=== PATIENT | female | born 1965 | race African-American/Black ===

== ENCOUNTER 2016-08-08 12:51 | Observation (INO) | payer OTHER, MEDICAID ==
[~2016-08-08] VITALS: Ht 177.8 cm; Wt 82.0 kg
[2016-08-08] VITALS (7 sets, daily range): BP systolic 106–120; BP diastolic 68–85; PULSE 60–69; RESP 15–18; TEMP 97–98.5; O2SAT 96–100
[2016-08-08] MEDS ORDERED: SODIUM CHLORID 0.9% 500 ML INJ 500 ML IV ONE (13:15)
[2016-08-08] MEDS ORDERED: SODIUM CHLORIDE 0.9% FLUSH 5 ML FLUSH IVF PRN (13:15)
[2016-08-08] MEDS ORDERED: ASPIRIN 81 MG CHEW TAB PO ONE (13:15)
[2016-08-08] MEDS ORDERED: ASPI81CH CHEW (13:22)
[2016-08-08] MEDS ORDERED: CLON0.5T PO (13:22)
[2016-08-08] MEDS ORDERED: NIFE60TA58 PO (13:22)
[2016-08-08] MEDS ORDERED: ATEN50TA PO (13:22)
[2016-08-08] MEDS ORDERED: ESCI10TA PO (13:22)
[2016-08-08] MEDS ORDERED: HYDR1CAP30 PO (13:22)
[2016-08-08] MEDS ORDERED: ATOR20TA15 PO (13:22)
--- NOTE | 2016-08-08 13:23 | PD ---
HPI Chief Complaint: Chest Pain Time Seen by Provider: 13:05 Travel History International Travel<30 days: No Contact w/Intl Traveler<30days: No Traveled to known affect area: No History of Present Illness HPI The patient is a 51-year-old [place] female who presents to the emergency department for chest pain. The patient is currently visiting family, she is from [place]. The patient states she had chest pain at 10 AM this morning that awakened her from sleep. The chest pain is substernal, dull, achy , nonradiating. The patient does complain of mild shortness of breath and nausea with the chest pain but denies any vomiting. The patient does have a history of hypertension, hyperlipidemia, and previous TIA. The patient took a baby aspirin this morning. The patient denies any recent exertional symptoms and is unsure if she has had a stress test in the past, she denies previous cardiac catheterization. The patient's symptoms are moderate, there are no current alleviating or exacerbating factors. PFSH Past Medical History Narrative Medical Hypertension, hyperlipidemia, TIA Social History Tobacco Use: No Allergies-Medications (Allergen,Severity, Reaction): Coded Allergies: No Known Allergies (Unverified , 08/08/16) Reported Meds & Prescriptions Reported Meds & Active Scripts Active Reported Escitalopram (Escitalopram Oxalate) 10 Mg Tab 10 Mg PO DAILY Clonazepam 0.5 Mg Tab 0.5 Mg PO BID PRN Hydroxyzine Pamoate 25 Mg Cap 50 Mg PO HS PRN Aspirin 81 Mg Chew 81 Mg CHEW DAILY Atenolol 50 Mg Tab 50 Mg PO DAILY Atorvastatin (Atorvastatin Calcium) 20 Mg Tab 20 Mg PO HS Nifedipine ER 24 HR (Nifedipine) 60 Mg Tab 60 Mg PO DAILY Review of Systems Except as stated in HPI: all other systems reviewed are Neg General / Constitutional: No: Fever HENT: No: Lightheadedness Cardiovascular: Positive: Chest Pain or Discomfort, No: Diaphoresis Respiratory: Positive: Shortness of Breath Gastrointestinal: Positive: Nausea, No: Vomiting Musculoskeletal: No: Myalgias, Weakness Neurologic: No: Weakness, Dizziness Physical Exam Narrative GENERAL: Awake, alert, pleasant 51-year-old female who appears her stated age and is in no acute respiratory distress. SKIN: Warm and dry. HEAD: Atraumatic. Normocephalic. EYES: No injection or drainage. ENT: No nasal bleeding or discharge. Mucous membranes pink and moist. NECK: Trachea midline. No JVD. CARDIOVASCULAR: Regular rate and rhythm. No murmur appreciated. RESPIRATORY: No accessory muscle use. Clear to auscultation. Breath sounds equal bilaterally. GASTROINTESTINAL: Abdomen soft, non-tender, nondistended. No epigastric tenderness. No rebound tenderness, guarding, or rigidity. MUSCULOSKELETAL: No obvious deformities. No clubbing. No cyanosis. No edema. NEUROLOGICAL: Awake and alert. No obvious cranial nerve deficits. Motor grossly within normal limits. Normal speech. PSYCHIATRIC: Appropriate mood and affect; insight and judgment normal. Data Data Last Documented VS Vital Signs Date Time Temp Pulse Resp B/P Pulse Ox O2 Delivery O2 Flow Rate FiO2 08/08/16 13:46 99 Room Air 08/08/16 13:45 114/76 08/08/16 13:14 98.5 69 16 Orders Ckmb (Isoenzyme) Profile (08/08/16 13:13) Complete Blood Count With Diff (08/08/16 13:13) Comprehensive Metabolic Panel (08/08/16 13:13) Magnesium (Mg) (08/08/16 13:13) Prothrombin Time / Inr (Pt) (08/08/16 13:13) Act Partial Throm Time (Ptt) (08/08/16 13:13) Troponin I (08/08/16 13:13) Chest, Single Ap (08/08/16 13:13) Ecg Monitoring (08/08/16 13:13) Bilateral Bp Monitoring (08/08/16 13:13) Iv Access Insert/Monitor (08/08/16 13:13) Oximetry (08/08/16 13:13) Oxygen Administration (08/08/16 13:13) Aspirin Chew (Aspirin Chew) (08/08/16 13:15) Sodium Chloride 0.9% Flush (Ns Flush) (08/08/16 13:15) Sodium Chlorid 0.9% 500 Ml Inj (Ns 500 M (08/08/16 13:15) CKMB (08/08/16 13:31) CKMB% (08/08/16 13:31) Morphine Inj (Morphine Inj) (08/08/16 14:15) Ondansetron Inj (Zofran Inj) (08/08/16 14:15) Nitroglycerin 2% Oint (Nitroglycerin 2% (08/08/16 14:15) Lipase (08/08/16 13:31) Admit Order (Ed Use Only) (08/08/16 14:34) Labs Laboratory Tests Test 08/08/16 13:31 White Blood Count 4.0 TH/MM3 Red Blood Count 4.92 MIL/MM3 Hemoglobin 11.3 GM/DL Hematocrit 35.5 % Mean Corpuscular Volume 72.0 FL Mean Corpuscular Hemoglobin 22.9 PG Mean Corpuscular Hemoglobin 31.8 % Concent Red Cell Distribution Width 15.3 % Platelet Count 201 TH/MM3 Mean Platelet Volume 8.2 FL Neutrophils (%) (Auto) 47.2 % Lymphocytes (%) (Auto) 39.1 % Monocytes (%) (Auto) 10.5 % Eosinophils (%) (Auto) 2.7 % Basophils (%) (Auto) 0.5 % Neutrophils # (Auto) 1.9 TH/MM3 Lymphocytes # (Auto) 1.6 TH/MM3 Monocytes # (Auto) 0.4 TH/MM3 Eosinophils # (Auto) 0.1 TH/MM3 Basophils # (Auto) 0.0 TH/MM3 CBC Comment AUTO DIFF Differential Comment AUTO DIFF CONFIRMED Ovalocytes 1+ Prothrombin Time 11.6 SEC Prothromb Time International 1.0 RATIO Ratio Activated Partial 28.0 SEC Thromboplast Time Sodium Level 143 MEQ/L Potassium Level 3.9 MEQ/L Chloride Level 108 MEQ/L Carbon Dioxide Level 27.3 MEQ/L Anion Gap 8 MEQ/L Blood Urea Nitrogen 12 MG/DL Creatinine 0.79 MG/DL Estimat Glomerular Filtration 92 ML/MIN Rate Random Glucose 96 MG/DL Calcium Level 8.6 MG/DL Magnesium Level 1.7 MG/DL Total Bilirubin 0.4 MG/DL Aspartate Amino Transf 15 U/L (AST/SGOT) Alanine Aminotransferase 23 U/L (ALT/SGPT) Alkaline Phosphatase 78 U/L Total Creatine Kinase 121 U/L Creatine Kinase MB 0.5 NG/ML Troponin I LESS THAN 0.02 NG/ML Total Protein 8.0 GM/DL Albumin 3.6 GM/DL Lipase 225 U/L MDM Medical Decision Making Medical Screen Exam Complete: Yes Emergency Medical Condition: Yes Medical Record Reviewed: Yes Interpretation(s) EKG reveals normal sinus rhythm with PACs. No ischemic changes noted. Chest x-rays unremarkable Laboratory Tests Test 08/08/16 13:31 White Blood Count 4.0 TH/MM3 Red Blood Count 4.92 MIL/MM3 Hemoglobin 11.3 GM/DL Hematocrit 35.5 % Mean Corpuscular Volume 72.0 FL Mean Corpuscular Hemoglobin 22.9 PG Mean Corpuscular Hemoglobin 31.8 % Concent Red Cell Distribution Width 15.3 % Platelet Count 201 TH/MM3 Mean Platelet Volume 8.2 FL Neutrophils (%) (Auto) 47.2 % Lymphocytes (%) (Auto) 39.1 % Monocytes (%) (Auto) 10.5 % Eosinophils (%) (Auto) 2.7 % Basophils (%) (Auto) 0.5 % Neutrophils # (Auto) 1.9 TH/MM3 Lymphocytes # (Auto) 1.6 TH/MM3 Monocytes # (Auto) 0.4 TH/MM3 Eosinophils # (Auto) 0.1 TH/MM3 Basophils # (Auto) 0.0 TH/MM3 CBC Comment AUTO DIFF Prothrombin Time 11.6 SEC Prothromb Time International 1.0 RATIO Ratio Activated Partial 28.0 SEC Thromboplast Time Sodium Level 143 MEQ/L Potassium Level 3.9 MEQ/L Chloride Level 108 MEQ/L Carbon Dioxide Level 27.3 MEQ/L Anion Gap 8 MEQ/L Blood Urea Nitrogen 12 MG/DL Creatinine 0.79 MG/DL Estimat Glomerular Filtration 92 ML/MIN Rate Random Glucose 96 MG/DL Calcium Level 8.6 MG/DL Magnesium Level 1.7 MG/DL Total Bilirubin 0.4 MG/DL Aspartate Amino Transf 15 U/L (AST/SGOT) Alanine Aminotransferase 23 U/L (ALT/SGPT) Alkaline Phosphatase 78 U/L Total Creatine Kinase 121 U/L Troponin I LESS THAN 0.02 NG/ML Total Protein 8.0 GM/DL Albumin 3.6 GM/DL Differential Diagnosis Differential diagnosis includes acute coronary syndrome, costochondritis, GERD, soft with spasm, gastritis, pancreatitis, dissection. Narrative Course IV was established, labs were drawn and sent, and the patient was placed on cardiac telemetry monitoring and continuous pulse oximetry monitoring. EKG was ordered and interpreted. The patient was administered aspirin and IV fluids. Chest x-ray was obtained. Troponin/CPK were sent to lab. Chest x-rays unremarkable. The patient's initial troponin and CPK are negative. The patient continued to have pain, therefore, was administered nitroglycerin ointment 1 half-inch, morphine, and Zofran. Patient does have risk factors including hypertension, hyperlipidemia, known previous TIA, according to her report. Therefore, after discussion with patient, as agreed she would be a 23 hour observation to the chest pain center for serial cardiac enzymes and possible stress test. The patient is comfortable with this plan of care and disposition. Physician Communication [facility] Communication [facility] to the chest pain Center. I discussed the patient with Dr. Fajardo who agrees with 23 hour observation. Diagnosis Primary Impression: Chest pain Qualified Code: R07.9 - Chest pain, unspecified type Admitting Information Admitting Physician Requests: Observation Condition: Stable Brent Bautista MD Aug 08, 2016 13:23
[2016-08-08 13:46] LABS: AUTOMATED NEUTROPHIL # 1.9 TH/MM3 (1.8-7.7); BASOPHIL % 0.5 % (0.0-2.0); EOSINOPHIL # 0.1 TH/MM3 (0-0.4); EOSINOPHIL % 2.7 % (0.0-4.0); HEMATOCRIT 35.5 % (35.0-46.0); HEMO FLAGS AUTO DIFF; LYMPH % 39.1 % (9.0-44.0); LYMPHOCYTE # 1.6 TH/MM3 (1.0-4.8); MEAN CORPUSCULAR HEMOGLOBIN 22.9 PG (27.0-34.0); MEAN CORPUSCULAR HGB CONC 31.8 % (32.0-36.0); MONO % 10.5 % (0.0-8.0); NEUT % 47.2 % (16.0-70.0); PLATELET COUNT 201 TH/MM3 (150-450); RED BLOOD COUNT 4.92 MIL/MM3 (4.00-5.30); RED CELL DISTRIBUTION WIDTH 15.3 % (11.6-17.2)
[2016-08-08 13:50] LABS: CHLORIDE 108 MEQ/L (98-107); POTASSIUM 3.9 MEQ/L (3.5-5.1); SODIUM (NA) 143 MEQ/L (136-145)
[2016-08-08 13:53] LABS: PROTHROMBIN TIME - PATIENT 11.6 SEC (9.8-11.6)
[2016-08-08 13:55] LABS: ANION GAP 8 MEQ/L (5-15); BICARBONATE 27.3 MEQ/L (21.0-32.0); BLOOD UREA NITROGEN 12 MG/DL (7-18); MAGNESIUM 1.7 MG/DL (1.5-2.5)
[2016-08-08 13:57] LABS: ALT (GPT) 23 U/L (10-53)
[2016-08-08 13:58] LABS: AST (GOT) 15 U/L (15-37); GLOMERULAR FILTRATION RATE 92 ML/MIN (>89)
[2016-08-08 13:59] LABS: TOTAL BILIRUBIN ADULT 0.4 MG/DL (0.2-1.0)
[2016-08-08 14:00] LABS: CREATINE KINASE 121 U/L (26-192)
[2016-08-08 14:01] LABS: ALKALINE PHOSPHATASE 78 U/L (45-117)
[2016-08-08 14:13] LABS: CKMB 0.5 NG/ML (0.5-3.6)
[2016-08-08] MEDS ORDERED: ONDANSETRON HCL 4 MG/2 ML VIAL IV PUSH ONE (14:15)
[2016-08-08] MEDS ORDERED: NITROGLYCERIN 2% OINT 1 GM PACKET TOPICAL ONE (14:15)
[2016-08-08] MEDS ORDERED: MORPHINE SULFATE 4 MG/ML INJ IV PUSH ONE (14:15)
[2016-08-08 14:19] LABS: OVALOCYTES 1+ (NORMAL); SCAN/DIFF AUTO DIFF CONFIRMED
--- NOTE | 2016-08-08 14:21 | RADHPO ---
EXAM DATE/TIME: 08/08/2016 13:36 [facility] COMPARISON: No previous studies available for comparison. INDICATIONS : Chest pain MEDICAL HISTORY : None. SURGICAL HISTORY : None. ENCOUNTER: Initial ACUITY: 1 day PAIN SCORE: 2/10 LOCATION: middle chest FINDINGS: A single view of the chest demonstrates the lungs to be symmetrically aerated without evidence of mas s, infiltrate or effusion. The cardiomediastinal contours are unremarkable. Osseous structures are intact. CONCLUSION: No acute disease. Elan Flynn MD FACR on August 08, 2016 at 14:20 Board Certified Radiologist. This report was verified electronically.
--- NOTE | 2016-08-08 15:31 | HHI.HP ---
[facility] Primary Care Physician Non-Staff Admission Diagnosis chest pain rule out acute coronary syndrome Diagnoses: (1) Chest pain Diagnosis: Principal Chief Complaint: chest pain Travel History International Travel<30 Days: No Contact w/Intl Traveler <30 Da: No Traveled to Known Affected Are: No History of Present Illness 51-year-old -[place] female with history of hypertension, hyperlipidemia , multiple TIAs presents with complaint of chest pain and is admitted to chest pain center. Patient states chest pain woke her from sleep this morning. She locates the pain just left of the sternum. States the pain at its worse was a 9 /10. She had taken her blood pressure medication and aspirin at home but is unsure if it provided relief. She did receive medication here in the ED and pain is better now but still 6/10 currently. She admits to radiation of pain to left shoulder and left jaw. She also states she was diaphoretic and short of breath. She does admit to having dyspnea on exertion and sleeps with 3 pillows at night and admits to PND, but she also uses a CPAP. Patient admits to recent ankle swelling and states she took a car trip from [place] to [place] last weekend but does admit to frequent stops. She denies any history of DVT or pulmonary embolus, exogenous estrogen use, or recent surgeries. Admits to runny nose and chills but denies any cold symptoms otherwise including cough. Admits to navel pain. Review of Systems Except as stated in HPI: all other systems reviewed are Neg Past Family Social History Past Medical History Hypertension Hyperlipidemia TIA 2 2007 TIA November 2015 Past Surgical History Right hip replacement Arthroscopy left shoulder Reported Medications Escitalopram (Escitalopram Oxalate) 10 Mg Tab 10 Mg PO DAILY Clonazepam 0.5 Mg Tab 0.5 Mg PO BID PRN Hydroxyzine Pamoate 25 Mg Cap 50 Mg PO HS PRN Aspirin 81 Mg Chew 81 Mg CHEW DAILY Atenolol 50 Mg Tab 50 Mg PO DAILY Atorvastatin (Atorvastatin Calcium) 20 Mg Tab 20 Mg PO HS Nifedipine ER 24 HR (Nifedipine) 60 Mg Tab 60 Mg PO DAILY Allergies: Coded Allergies: No Known Allergies (Unverified , 08/08/16) Family History Mother: Hypertension Father: [place] at age 67 Half-brother: [place] in his 30s. Maternal grandmother: Stroke, hypertension, diabetes Social History Denies history of cigarette smoking. Drinks wine occasionally. Denies any history of illicit drug use. Physical Exam Vital Signs Vital Signs Date Time Temp Pulse Resp B/P Pulse Ox O2 Delivery O2 Flow Rate FiO2 08/08/16 13:46 99 Room Air 08/08/16 13:46 99 Room Air 08/08/16 13:45 114/76 08/08/16 13:14 98.5 69 16 106/72 100 Physical Exam GENERAL: This is a pleasant well-nourished, well-developed patient, in no apparent distress. SKIN: No rashes, ecchymoses or lesions. Warm and dry. HEAD: Atraumatic. Normocephalic. EYES: No scleral icterus. No injection or drainage. NECK: Trachea midline. No JVD. CARDIOVASCULAR: Regular rate and rhythm without murmurs, gallops, or rubs. RESPIRATORY: Clear to auscultation. Breath sounds equal bilaterally. No wheezes , rales, or rhonchi. GASTROINTESTINAL: Abdomen soft, non-tender, nondistended. No abdominal bruits. No pulsatile masses. MUSCULOSKELETAL: No lower extremity edema or calf pain bilaterally. NEUROLOGICAL: Awake and alert. Motor grossly within normal limits. Normal speech. PSYCHIATRIC: Normal mood and affect. Laboratory Laboratory Tests Test 08/08/16 13:31 White Blood Count 4.0 Red Blood Count 4.92 Hemoglobin 11.3 Hematocrit 35.5 Mean Corpuscular Volume 72.0 Mean Corpuscular Hemoglobin 22.9 Mean Corpuscular Hemoglobin 31.8 Concent Red Cell Distribution Width 15.3 Platelet Count 201 Mean Platelet Volume 8.2 Neutrophils (%) (Auto) 47.2 Lymphocytes (%) (Auto) 39.1 Monocytes (%) (Auto) 10.5 Eosinophils (%) (Auto) 2.7 Basophils (%) (Auto) 0.5 Neutrophils # (Auto) 1.9 Lymphocytes # (Auto) 1.6 Monocytes # (Auto) 0.4 Eosinophils # (Auto) 0.1 Basophils # (Auto) 0.0 CBC Comment AUTO DIFF Differential Comment AUTO DIFF CONFIRMED Ovalocytes 1+ Prothrombin Time 11.6 Prothromb Time International 1.0 Ratio Activated Partial 28.0 Thromboplast Time Sodium Level 143 Potassium Level 3.9 Chloride Level 108 Carbon Dioxide Level 27.3 Anion Gap 8 Blood Urea Nitrogen 12 Creatinine 0.79 Estimat Glomerular Filtration 92 Rate Random Glucose 96 Calcium Level 8.6 Magnesium Level 1.7 Total Bilirubin 0.4 Aspartate Amino Transf 15 (AST/SGOT) Alanine Aminotransferase 23 (ALT/SGPT) Alkaline Phosphatase 78 Total Creatine Kinase 121 Creatine Kinase MB 0.5 Troponin I LESS THAN 0.02 Total Protein 8.0 Albumin 3.6 Lipase 225 Result Diagram: 08/08/16 1331 08/08/16 1331 Assessment and Plan Problem List: (1) Chest pain ICD Code: R07.9 Status: Acute Assessment and Plan 51-year-old [place] female with: Chest pain: Associated with diaphoresis, shortness of breath, radiating pain to the jaw and left shoulder. Still has pain now. Nitro ointment applied in ED. Patient received 162 mg aspirin, Zofran, and morphine as well. EKG personally interpreted with normal sinus rhythm with PACs and LAD. Troponin less than 0.02. Chest x-ray personally interpreted without evidence of pneumonia. -Serial EKGs and enzymes -Patient additionally admits to orthopnea, PND, and dyspnea on exertion. Will order BNP. No evidence of cardiomegaly or fluid overload on chest x-ray. Lung exam benign and legs without swelling so unlikely to have CHF. -325 mg daily aspirin -Nitro/[place]/morphine prn pain -Telemetry -Stress test in the am HTN: Patient tells me she last took her atenolol and nifedipine this morning. Will hold these in case patient can perform a treadmill test tomorrow. -Clonidine and Enalapril prn SBP >160/ DBP >90 HLD: Continue home medication DVT prevention: TEDs/SCDs. Written by Madyson Chase PA-C acting as scribe for Dr. Fajardo on 08/08/16 at ~ 1525. I, Dr. Naresh Fajardo personally performed the history, physical exam, and medical decision making; and confirmed the accuracy of the information in the transcribed note. Authenticated by Dr. Naresh Fajardo on 08/08/16 at 15:25. Code Status Full code Discussed Condition With ED physician Problem Qualifiers (1) Chest pain: Qualified Code: R07.9 - Chest pain, unspecified type Madyson Chase Aug 08, 2016 15:31 Naresh Fajardo MD Aug 08, 2016 16:27
[2016-08-08] MEDS ORDERED: ACETAMINOPHEN 500 MG CPLT PO PRN (15:45)
[2016-08-08] MEDS ORDERED: ONDANSETRON HCL 4 MG/2 ML VIAL IV PRN (15:45)
[2016-08-08] MEDS ORDERED: MORPHINE SULFATE 4 MG/ML INJ IV PRN (15:45)
[2016-08-08] MEDS ORDERED: cloNIDine HCL 0.1 MG TAB PO PRN (16:15)
[2016-08-08] MEDS ORDERED: ENALAPRILAT 1.25 MG/ML VIAL IV PUSH PRN (16:15)
[2016-08-08 17:27] LABS: CREATINE KINASE 121 U/L (26-192)
[2016-08-08 17:39] LABS: CKMB 0.7 NG/ML (0.5-3.6)
[2016-08-08] MEDS: ACETAMINOPHEN/HYDROcodone 325 MG/7.5 MG TAB PO PRN ×2 (18:09→22:59)
[2016-08-08 20:14] LABS: CREATINE KINASE 118 U/L (26-192)
[2016-08-08 20:26] LABS: CKMB LESS THAN 0.5 NG/ML (0.5-3.6)
[2016-08-08] MEDS: ESCITALOPRAM OXALATE 10 MG TAB PO SCH (21:00)
[2016-08-08] MEDS: SODIUM CHLORIDE 0.9% FLUSH 5 ML FLUSH IVF SCH (21:00)
[2016-08-08] MEDS: NITROGLYCERIN 0.4 MG SL 25 TABS/BTL SL PRN ×3 (23:05→23:30)
[2016-08-09] VITALS: BP 115/72; PULSE 59; RESP 16; TEMP 96.7; O2SAT 97
[2016-08-09 04:00] VITALS: BP 117/75; PULSE 70; RESP 18; TEMP 96.4; O2SAT 99
[2016-08-09] MEDS: SODIUM CHLORIDE 0.9% FLUSH 5 ML FLUSH IVF PRN ×2 (04:36→04:40)
--- NOTE | 2016-08-09 07:49 | HHI.PR ---
Subjective Remarks Patient seen and examined today for follow-up on chest pain. Patient states that she has had constant chest pain throughout the night the precordial area. Patient states it felt like she get hit by hammer in the chest. Objective Vitals Vital Signs Date Time Temp Pulse Resp B/P Pulse Ox O2 Delivery O2 Flow Rate FiO2 08/09/16 04:00 96.4 70 18 117/75 99 08/09/16 00:00 96.7 59 16 115/72 97 08/08/16 20:00 97.9 61 18 120/76 98 08/08/16 20:00 62 08/08/16 16:00 97.0 60 16 119/85 96 08/08/16 15:46 68 15 111/68 99 08/08/16 15:30 64 08/08/16 13:46 99 Room Air 08/08/16 13:46 99 Room Air 08/08/16 13:45 114/76 08/08/16 13:14 98.5 69 16 106/72 100 I/O 08/08/16 08/08/16 08/08/16 08/09/16 08/09/16 08/09/16 07:00 15:00 23:00 07:00 15:00 23:00 Intake Total 920 ml 0 ml Balance 920 ml 0 ml Intake Oral 420 ml 0 ml IV Total 500 ml # Voids 1 2 # Bowel Movements 0 Result Diagram: 08/08/16 1331 08/08/16 1331 Objective Remarks GENERAL: Well-developed, well-nourished, in no acute distress. alert and orientated HEENT: Head is normocephalic without any lesions or masses noted. Facial features are symmetric. Eyes: Extraocular muscles are intact. Conjunctivae were clear. NECK: Supple without any masses. Trachea midline no deviation. No JVD, CARDIAC: Regular rhythm, regular rate. S1/S2 are heard. 2/6 ejection murmur left sternal border. No Gallops or rubs. Reproducible palpable tenderness along left sternal border LUNGS: Clear to auscultation bilaterally. No wheeze, rhonchi or rales. No use of accessory muscles on inspiration or expiration. ABDOMEN: Soft, nontender. Nondistended. Bowel sounds heard in all 4 quadrants. No organomegaly or masses. Negative rebound, negative guarding EXTREMITIES: No edema, pulses are equal bilaterally. No cyanosis or clubbing NEUROLOGY: Mood and affect appear appropriate. Cranial nerves II through XII grossly intact. Moving all extremities, speech clear Urinary Catheter: No Vascular Central Line Catheter: No A/P Assessment and Plan -Chest pain: Patient still with active left sternal border chest pain, the [place] and hit her in the chest with a hammer. Continue, Zofran, and morphine as well. Serial EKGs were performed which were negative and ruled out any acute coronary event. Serial EKG shows sinus rhythm without any changes. Discussed the patient she has not had a heart attack or any cardiac damage. Recommended stress test, patient states that she cannot do a treadmill stress test due to a bad hip. Nuclear stress test was performed which did not indicate any signs of ischemia and low risk. Discussed with patient that her pain is likely musculoskeletal in nature. -Hypertension: Continue patient's home medications atenolol and nifedipine. As needed clonidine -Hyperlipidemia: Continue home medication -DVT prevention: TEDs/SCDs. Written by Carlos Alberto Andre PA-C, acting as scribe for Dr. Fajardo on 08/09/16 at 1035. The documentation accurately reflects the work and decisions performed face-to- face by Dr. Fajardo on 08/09/16 at 1035. Discharge Planning Discharge home in stable condition Activity: Ad kenney. Diet: Healthy heart diet Medications per medication reconciliation Follow-up primary medical doctor in one week Carlos Alberto Andre Aug 09, 2016 07:49
[2016-08-09 08:00] VITALS: BP 146/79; PULSE 65; PULSE 67; RESP 18; TEMP 97; O2SAT 98
[2016-08-09] MEDS ORDERED: ATENOLOL 50 MG TAB PO SCH (09:00)
[2016-08-09] MEDS ORDERED: ASPIRIN 81 MG CHEW TAB CHEW SCH (09:00)
[2016-08-09] MEDS ORDERED: PANTOPRAZOLE SOD 40 MG DELAYED RELEASE TAB PO SCH (09:00)
[2016-08-09] MEDS: SODIUM CHLORIDE 0.9% FLUSH 5 ML FLUSH IVF SCH (09:00)
[2016-08-09] MEDS ORDERED: ASPIRIN 325 MG TAB PO SCH (09:00)
[2016-08-09] MEDS ORDERED: NIFEdipine 60 MG SUSTAINED RELEASE TAB PO SCH (09:00)
[2016-08-09] MEDS ORDERED: REGADENOSON INJ 0.4 MG/5 ML SYR IV ONE (09:18)
[2016-08-09] MEDS: ESCITALOPRAM OXALATE 10 MG TAB PO SCH (10:19)
--- NOTE | 2016-08-09 10:23 | RADHPO ---
EXAM DATE/TIME: 08/09/2016 08:56 [facility] COMPARISON: No previous studies available for comparison. INDICATIONS : Substernal chest pain with nausea and dyspnea for 1 day. Angina. DOSE: 26.1 mCi Tc99m Myoview at stress. 8.6 mCi Tc99m Myoview at rest. 0.4 mg Lexiscan STRESS SYMPTOMS: Dyspnea, head pressure and chest pain. EJECTION FRACTION: 69% MEDICAL HISTORY : Hypercholesterolemia. Stroke SURGICAL HISTORY : Right hip replacement. ENCOUNTER: Initial ACUITY: 1 day PAIN SCALE: 2/10 LOCATION: Substernal chest TECHNIQUE: The patient underwent pharmacologic stress with infusion of prescribed dose. Continuous ECG tracing was monitored during stress. Gated SPECT imaging was performed after stress and conventional SPECT i maging was performed at rest. The examination was performed on a SPECT/CT scanner, both attenuation and non-corrected datasets were reviewed. FINDINGS: DISTRIBUTION: The maximum perfused segment at stress is in the inferior wall. PERFUSION STUDY: The pattern of perfusion at stress is within normal limits. GATED STUDY: There is intact wall motion and thickening without hypokinetic or dyskinetic segments. CONCLUSION: No ischemia is seen. RISK CATEGORY: Low (<1% Annual Mortality Rate) Ankit Vidales MD on August 09, 2016 at 10:20 Board Certified Radiologist. This report was verified electronically.
--- NOTE | 2016-08-09 10:27 | HHI.DCPOC ---
Discharge Care Plan Diagnosis: (1) Chest pain Goals to Promote Your Health * To prevent worsening of your condition and complications * To maintain your health at the optimal level Directions to Meet Your Goals Take your medications as prescribed Follow your dietary instruction Follow activity as directed Keep your appointments as scheduled Take your immunizations and boosters as scheduled If your symptoms worsen call your PCP, if no PCP go to Urgent Care Center or Emergency Room Smoking is Dangerous to Your Health. Avoid second hand smoke Call the 24-hour hour crisis hotline for domestic abuse at Carlos Alberto Andre Aug 09, 2016 10:27
[2016-08-09 12:00] VITALS: BP 113/66; PULSE 62; RESP 16; TEMP 97.8; O2SAT 98
--- NOTE | 2016-08-09 14:52 | EKG ---
Date Performed: 08/08/2016 Time Performed: 12:56:40 PTAGE: 51 years EKG: Sinus rhythm with PAC(s) Leftward axis Borderline ECG NO PREVIOUS TRACING DOCTOR: Colton Joseph Interpretating Date/Time 08/09/2016 14:49:28
--- NOTE | 2016-08-09 14:53 | EKG ---
Date Performed: 08/08/2016 Time Performed: 19:39:18 PTAGE: 51 years EKG: Sinus rhythm with PAC(s). Borderline ECG Since PREVIOUS TRACING , no significant change noted. PREVIOUS TRACIN08/08/2016 16.48 DOCTOR: Colton Joseph Interpretating Date/Time 08/09/2016 14:50:22
--- NOTE | 2016-08-09 14:53 | EKG ---
Date Performed: 08/08/2016 Time Performed: 16:48:26 PTAGE: 51 years EKG: Sinus bradycardia. Normal ECG except for rate Compared to PREVIOUS TRACING , the rate has increased. PREVIOUS TRACIN08/08/2016 12.56 DOCTOR: Colton Joseph Interpretating Date/Time 08/09/2016 14:49:45
--- NOTE | 2016-08-09 16:23 | TR ---
Date Performed: 08/09/2016 Time Performed: 09:02:52 DOCTOR: Ashley Zamorano DRUG LIST: CLINICAL HISTORY: REASON FOR TEST: Chest pain REASON FOR ENDING: OBSERVATION: CONCLUSION: Lexiscan stress test was performed under standard four minute protocol. [place] e was injected one minute prior to ending the test. No electrocardiographic abormalities were present to suggest ischemia. Nuclear imaging and interpretation are pending. COMMENTS:
[2016-08-09] MEDS ORDERED: ATORVASTATIN 20 MG TAB PO SCH (21:00)
== END 2016-08-09 13:12 | disposition home or self-care (01) ==
LOC: PHED 12:51 → PHEDA 14:35 → PH3A 15:37
PROVIDERS: ADMIT Hospitalist; ATTEND Hospitalist
DX: R07.9 Chest pain, unspecified (principal); R11.0 Nausea; R06.02 Shortness of breath; Z86.73 Personal history of transient ischemic attack (TIA), and cerebral infarction without residual deficits; I10 Essential (primary) hypertension; E78.5 Hyperlipidemia, unspecified; Z79.899 Other long term (current) drug therapy; R61 Generalized hyperhidrosis; R06.01 Orthopnea
CPT/HCPCS: 71010; 78452; 80053; 82550; 82552; 83690; 83735; 83880; 84484; 85025; 85610; 85730; 93005; 93017; 96374; 96375; 99285; A9502; G0378; J2270; J2405; J2785; J7040